=== PATIENT | female | born 1955 | race Caucasian/White ===

== ENCOUNTER → 2016-06-01 | Outpatient (CLI) | payer BC ==
[~2016-06-01] MED LIST: FLEC100T21 PO; LORA-741 PO; LPR50X PO; METH-589 PO
--- NOTE | 2016-06-04 13:46 | MAMMOGRAPHY REPORT ---
BILATERAL DIGITAL SCREENING MAMMOGRAM TOMOSYNTHESIS WITH CAD: 06/01/2016 CLINICAL HISTORY: Routine screening. Patient has no complaints. TECHNIQUE: Breast tomosynthesis in addition to standard 2D mammography was performed. Current study was also evaluated with a Computer Aided Detection (CAD) system. COMPARISON: Comparison is made to exams dated: 05/30/2015 mammogram, 05/27/2014 mammogram, 05/20/2013 mammogram, 12/14/2014 mammogram, 05/07/2012 mammogram, and 05/07/2011 mammogram - [facility] enter. BREAST COMPOSITION: The tissue of both breasts is heterogeneously dense, which may obscure small ma sses. FINDINGS: No suspicious masses, calcifications, or areas of architectural distortion are noted in e ither breast. There has been no significant interval change compared to prior exams. There are fluc tuating small round/oval circumscribed benign-appearing masses within the left breast, which likely represent cysts, with multiple cysts seen on prior ultrasound exams. Bilateral benign-appearing jaylin cifications are also not significantly changed. IMPRESSION: ACR BI-RADS CATEGORY 2: BENIGN There is no mammographic evidence of malignancy. A 1 year screening mammogram is recommended. The p atient will receive written notification of the results. Approximately 10% of breast cancers are not detected with mammography. A negative mammographic repor t should not delay biopsy if a clinically suggestive mass is present. Xiomara Gee M.D. /:06/01/2016 16:38:17 Appointment Clerk: Greta HILTON(Carla)(Simran), [facility] letter sent: Normal 1/2 BI-RADS Code: ACR BI-RADS Category 2: Benign
== END | disposition home or self-care (01) ==
LOC: C.MAMM 15:58
PROVIDERS: ATTEND Internal Medicine
DX: Z12.31 Encounter for screening mammogram for malignant neoplasm of breast (principal)

== ENCOUNTER → 2017-11-08 | Outpatient (CLI) | payer BC ==
--- NOTE | 2017-11-08 15:27 | MAMMOGRAPHY REPORT ---
BILATERAL DIGITAL SCREENING MAMMOGRAM TOMOSYNTHESIS WITH CAD: 11/08/2017 CLINICAL HISTORY: Routine screening. Patient has no complaints. TECHNIQUE: The study was acquired using full field digital technology and interpreted from soft copy. Breast tomosynthesis in addition to standard 2D mammography was performed. Current study was also ev aluated with a Computer Aided Detection (CAD) system. COMPARISON: Comparison is made to exams dated: 06/01/2016 mammogram, 05/30/2015 mammogram, 12/14/2014 ma mmogram, 06/03/2014 mammogram, 05/27/2014 mammogram, and 05/20/2013 mammogram - [facility]. BREAST COMPOSITION: The tissue of both breasts is heterogeneously dense, which may obscure small mass es. FINDINGS: No suspicious masses, calcifications, or areas of architectural distortion are noted in either breast . There has been no significant interval change compared to prior exams. Again noted are fluctuating small round/oval circumscribed benign-appearing masses bilaterally, likely representing cysts. Bila teral benign-appearing calcifications are also not significantly changed. IMPRESSION: ACR BI-RADS CATEGORY 2: BENIGN There is no mammographic evidence of malignancy. A 1 year screening mammogram is recommended.( 019) The patient will receive written notification of the results. Some breast cancers are not detected with mammography. A negative mammographic report should not jamel y biopsy if a clinically suggestive mass is present. Xiomara Gee M.D. /:11/08/2017 14:44:54 Rn Clinical Research: RT Austin(R)(M), [facility] letter sent: Normal 1/2 BI-RADS Code: ACR BI-RADS Category 2: Benign
== END | disposition home or self-care (01) ==
LOC: C.MAMM 13:44
PROVIDERS: ATTEND Internal Medicine
DX: Z12.31 Encounter for screening mammogram for malignant neoplasm of breast (principal)

== ENCOUNTER 2022-04-30 09:04 | Observation (INO) ==
--- NOTE | 2022-03-20 11:14 | PAT Medication Instructions ---
Medication Instructions Date of Service March 20, 2022 Home Medications Medication Instructions Recorded methimazole 5 mg tablet 5 mg PO BID #180 tabs 06/12/21 metoprolol tartrate 25 mg tablet 25 mg PO BID #180 tabs 11/10/21 flecainide 150 mg tablet 150 mg PO BID #180 tabs 12/22/21 methimazole 5 mg tablet 5 mg PO BID metoprolol tartrate 25 mg tablet 25 mg PO BID flecainide 150 mg tablet 150 mg PO BID amlodipine 5 mg tablet (Norvasc) 5 mg PO QAM naproxen sodium 220 mg tablet 220 mg PO QAM PRN rosuvastatin 5 mg tablet 5 mg PO QAM ASK your surgeon for instructions naproxen sodium 220 mg tablet 220 mg PO QAM PRN Take morning of surgery With a small sip of water, OTHERWISE NOTHING TO EAT OR DRINK AFTER MIDNIGHT: methimazole 5 mg tablet 5 mg PO BID metoprolol tartrate 25 mg tablet 25 mg PO BID flecainide 150 mg tablet 150 mg PO BID amlodipine 5 mg tablet (Norvasc) 5 mg PO QAM rosuvastatin 5 mg tablet 5 mg PO QAM Take evening before surgery methimazole 5 mg tablet 5 mg PO BID metoprolol tartrate 25 mg tablet 25 mg PO BID flecainide 150 mg tablet 150 mg PO BID Other Notes If you have any questions please call us at [phone] or [phone] or [phone] or [phone]
--- NOTE | 2022-03-21 14:17 | Anesthesiology Consultation ---
Date of Service March 21, 2022 Assessment & Plan (1) Encounter for pre-operative examination: - COVID screening: Per assessment on 03/21: No known COVID-19 positive contacts or current COVID-19 related symptoms. Travel screen negative. Patient vaccinated. At surgeon discretion if preop Covid testing being done. - Outpatient joint pathway: Per OR booking comments, plan for outpatient joint program. Patient seen at [facility] 03/21. Case reviewed with Dr. Pretty. Given remote cardiac hx (WPW, paroxysmal a. fib), feels patient is not recommended for outpatient joint pathway. Patient and Gilda at surgeon's office aware. - Hx WPW, paroxysmal a. fib: Case reviewed with Dr. Pretty- recommend preop cardiology evaluation (pt aware/requests [facility]). Awaiting cardiology preop evaluation. Chart Review Chart Review: Patient seen in Pre Admission Testing Teaching & Discussion Pre-Anesthesia Teaching/Discussion Notes: Instructed NPO after midnight before surgery,except medications with 15 cc of water. Medication instructions provided according to the [facility] guidelines. History Surgery Operation Date: 04/30/22 09:20 Proposed Procedures p Right Total Knee Arthroplasty - Kenneth Domingo, DO Height/Weight Height: 5 ft 4 in Weight: 99 kg Allergies Allergy/AdvReac Type Severity Reaction Status Date / Time lidocaine AdvReac Intermediate Sensitivity, Verified 03/21/22 14:22 nausea, heart flutter (with dental procedure) Medications Home Medications Medication Instructions Recorded Confirmed Last Taken methimazole 5 mg tablet 5 mg PO BID #180 tabs 06/12/21 03/20/22 Unknown metoprolol tartrate 25 mg tablet 25 mg PO BID #180 tabs 11/10/21 03/20/22 Unknown flecainide 150 mg tablet 150 mg PO BID #180 tabs 12/22/21 03/20/22 Unknown amlodipine 5 mg tablet (Norvasc) 5 mg PO QAM 03/20/22 03/20/22 Unknown naproxen sodium 220 mg tablet 220 mg PO QAM PRN Pain 03/20/22 03/20/22 Unknown rosuvastatin 5 mg tablet 5 mg PO QAM 03/20/22 03/20/22 Unknown Past Medical History Medical History Hyperlipidemia Hypertension Hyperthyroidism controlled with medication Methimazole Euthyroid on 03/2022 labs Osteoarthritis Paroxysmal atrial fibrillation Thyroid goiter Amkao-Cosxityyo-Kqcus syndrome unsuccessful ablation 1997 ([facility] [place]) PCP manages- per 05/2021 PCP visit, "pAfib/WPW - Onset around 1997. She reports she failed ablation. She's been on Flecainide 150mg PO BID and Metoprolol 25mg BID for several years since without palpitations or recurrence of arrhythmia. Continue current medications." Exercise / Class Metabolic Activity II 4-5 Yardwork/Stairs/Walk up hill Past Family History Family History Mother Colorectal cancer Other No family history of adverse response to anesthesia Denies family history of Ovarian cancer Prostate cancer Breast cancer Lung cancer Past Surgical History Surgical History H/O section History of cardiac radiofrequency ablation History of colonoscopy Past Anesthesia History No Family Hx of Anesthesia Complications and Other (Sensitivity, nausea, heart flutter (with dental procedure)) History of PONV No Hx of PONV and No Hx of Motion Sickness Social History Smoking Status: Never smoker Do You Dip or Chew Tobacco: No Hx Alcohol Use: Yes Alcohol type: wine alcohol intake frequency: holidays/special occasions only Hx Substance Use: No substance use type: does not use Review of Systems Patient denies chest pain, shortness of breath, dyspnea on exertion, fever, chills, cough, wheezing, palpitations. Physical Exam Vital Signs VITALS BP 134/87 P 72 TEMP 97.9 SP02 95%RA RESP 16 PHYSICAL Full cervical extension range of motion. Full TMJ range of motion. TMD 3 finger breaths Mallampati Score 2 Dentition: intact, + several dental repairs (crowns) Lungs: clear throughout to auscultation Cardiac: regular rate and rhythm, no murmurs noted Spine: normal Carotid arteries: negative bruit Extremities: no edema Lab Results Anesthesia Preop Results Results Anesthesia Widget: WBC 7.31 K/ul (4.8-10.8) 03/21/22 Hgb 14.2 g/dl (12.0-16.0) 03/21/22 Hct 42.9 % (34.1-44.9) 03/21/22 Plt 208 K/uL (130-400) 03/21/22 Na 141 mmol/L (136-145) 03/21/22 K 3.8 mmol/L (3.5-5.1) 03/21/22 Cl 107 mmol/L (98-107) 03/21/22 CO2 29 mmol/L (21-32) 03/21/22 BUN 18 mg/dl (6-23) 03/21/22 Creat 0.66 mg/dl (0.6-1.2) 03/21/22 Glucose Level 108 mg/dl (70-99(Fasting)) H 03/21/22 PT 10.8 Seconds (9.0-12.0) 03/21/22 PTT 27.9 Seconds (21.0-31.0) 03/21/22 INR 1.0 (0.9-1.1) 03/21/22 TSH 1.298 uIu/ml (0.300-4.500) 03/21/22 Free T4 0.92 ng/dl (0.61-1.60) 03/21/22 Blood Type O Positive 03/21/22 Antibody Screen NEGATIVE 03/21/22 Testing Electrocardiogram Date: 03/21/22 NSR at 68bpm. Compared to 12/14/1996, WPW pattern no longer present per valve inserter comparison. Chest X-Ray Date: 03/21/22 FINDINGS: No lines and tubes are seen. The aorta is tortuous. The remainder of the cardiomediastinal silhouette is unremarkable. The lungs are clear. No evidence of pleural effusion or pneumothorax. IMPRESSION: No acute chest disease. COVID-19 Risk Screen Screening Information COVID-19 Screen Date: 03/21/22 Exposure 21 Days Family/Household +COVID Last 21 Days: No Exposure 10 Days Any COVID Exposure Last 10 Days: No Symptoms Last 10 Days Experienced COVID Sx Last 10 Days: No + COVID 0-90 Days COVID + in Last 0-90 Days: No
--- NOTE | 2022-04-26 16:31 | History & Physical Report ---
Date of Service April 26, 2022 Assessment & Plan (1) Osteoarthritis of knee: We will proceed with a right total knee arthroplasty. Postoperatively she will be started on aspirin for DVT prophylaxis and kept overnight in the hospital for postop medical management. She plans to use energy physical therapy upon discharge. History of Present Illness Chief Complaint: Osteoarthritis of the right knee. Primary Care Provider: Abad Shahid MD Cindi is a 66-year-old female who has been dealing with chronic worsening right knee pain. She has been having injections for years. She has done exercise and physical therapy without relief. She has been taking anti-inflammatories and has done activity modification. Unfortunately, she is still having a lot of rupert n in the knee. X-rays have shown advanced arthritis. After failing conservativetreatment, she has elected to proceed with a right total knee arthroplasty. . Allergies Allergy/AdvReac Type Severity Reaction Status Date / Time lidocaine AdvReac Intermediate Sensitivity, Verified 04/04/22 11:43 nausea, heart flutter (with dental procedure) Home Medications Medication Instructions Recorded Confirmed Type methimazole 5 mg tablet 5 mg PO BID #180 tabs 06/12/21 04/04/22 Rx metoprolol tartrate 25 mg tablet 25 mg PO BID #180 tabs 11/10/21 04/04/22 Rx flecainide 150 mg tablet 150 mg PO BID #180 tabs 12/22/21 04/04/22 Rx naproxen sodium 220 mg tablet 220 mg PO QAM PRN Pain 03/20/22 04/04/22 History rosuvastatin 5 mg tablet 5 mg PO QAM 03/20/22 04/04/22 History amlodipine 5 mg tablet (Norvasc) 10 mg PO QAM 04/04/22 04/04/22 History Past Med/Surg History Medical History Hyperlipidemia Hypertension Hyperthyroidism controlled with medication Methimazole Euthyroid on 03/2022 labs Osteoarthritis Paroxysmal atrial fibrillation Thyroid goiter Zabut-Wikanjynp-Lvfjh syndrome [place] 1997 [place] [place] PCP manages- per 05/2021 PCP visit, "pAfib/WPW - Onset around 1997. She reports she failed ablation. She's been on Flecainide 150mg PO BID and Metoprolol 25mg BID for several years since without palpitations or recurrence of arrhythmia. 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 Physical Exam On physical examination of the right knee, she is range of motion from 5 to 115 degrees. No instability. Pain of the distal femoral condyle.. Constitutional WD/WN, vitals as above Eyes PERRL, conjunctivae normal, anicteric sclerae ENMT external ear and nose normal, oropharynx normal Neck trachea midline, no thyromegaly Respiratory normal respiratory effort, lungs clear to auscultation Cardiovascular RRR, no murmur, no edema Gastrointestinal (Abdomen) normal bowel sounds, soft, nontender, no hepatosplenomegaly Skin no rashes, warm and dry Psychiatric A+Ox3, euthymic affect Results & Data Results & Data Laboratory Results . Diagnostic Findings X-rays of the right knee show advanced osteoarthritis with joint space narrowing, osteophyte formation, and gmrh-jk-wown articulation.. PG Care Time/CCT Total # of Minutes Spent Total Time Spent with Patient: Total time spent is greater than 50% in coordination of care (as documented) at patient's floor/unit and/or counseling patient: Coding Level of Care Code None Diagnoses Osteoarthritis of knee M17.10
[~2022-04-30 09:04] MED LIST changes: +ACETAMINOPHEN 500 MG TAB PO SCH; +BUPIVACAINE 0.5 % 5 MG/1 ML PF 10ML VIAL ONE; +FAMOTIDINE 20 MG TAB PO SCH; -FLEC100T21 PO; +GABAPENTIN 600 MG DOSE PO SCH; -LORA-741 PO; -LPR50X PO; +LR 500ML BOLUS, THEN 15ML/HR IV SCH; +LR 60ML/HR IV SCH; -METH-589 PO; +ORTHO JOINT MIX INFIL SCH; +ROPIVACAINE 0.5% 5 MG/ML 30 ML VIAL ONE; +TRANEXAMIC ACID 1,000 MG **IV Intra-op IV SCH; +TRANEXAMIC ACID 1,000 MG **IV Pre-op IV SCH; +ceFAZolin 2000MG 2,000 MG/15 ML SYR IV SCH; +dexAMETHasone 4 MG TAB PO SCH
[2022-04-30] MEDS ORDERED: MIDAZOLAM HCL 1 MG/ML 2ML VIAL ONE (09:23)
[2022-04-30] MEDS ORDERED: ONDANSETRON INJ 2 MG/ML 2 ML VIAL ONE (09:44)
[2022-04-30] MEDS ORDERED: PROPOFOL IV EMULSION 10 MG/ML 20 ML VIAL IV ONE ×2 (09:44→12:12)
[2022-04-30] MEDS ORDERED: LIDOCAINE 2% MPF LOCAL 5 ML VIAL INFIL ONE (09:44)
[2022-04-30] MEDS ORDERED: ATROPINE SULFATE 0.1 MG/ML 10ML SYR IV PRN (10:16)
[2022-04-30] MEDS ORDERED: ONDANSETRON INJ 2 MG/ML 2 ML VIAL IV PRN ×2 (10:16→13:54)
[2022-04-30] MEDS ORDERED: fentaNYL citrate 100 MCG/2 ML VIAL IV PRN (10:16)
[2022-04-30] MEDS ORDERED: ePHEDrine sulfate 50 MG/ML AMP IV PRN (10:16)
--- NOTE | 2022-04-30 10:23 | History & Physical Bridge Note ---
Date of Service April 30, 2022 History & Physical Bridge Note I have examined the patient, reviewed the History & Physical and in the interval since the performance of the History & Physical I have noted the following changes of clinical significance: no changes noted
[2022-04-30] MEDS ORDERED: ORTHO JOINT ANESTHETIC ONE (10:49)
[2022-04-30] MEDS ORDERED: GLYCOPYRROLATE 0.2 MG/ML VIAL ONE (11:44)
[2022-04-30] MEDS ORDERED: ePHEDrine sulfate 50 MG/ML SYR ONE (11:57)
--- NOTE | 2022-04-30 12:17 | Operative Report ---
PG Post Operative Report Pre & Post Diagnosis Operation Date: 04/30/22 10:55 Pre-Op Diagnosis: Degenerative Joint Disease Right Knee Post-Op Diagnosis: Degenerative Joint Disease Right Knee I identified the patient and participated in the time-out.: Yes Procedure Operation Date: 04/30/22 10:55 Actual Procedures p Right Total Knee Arthroplasty(Right) - Kenneth Dominog DO Surgeon Kenneth Domingo DO Machine Cloth Measurer Kenneth Cuadra PA-C Estimated Blood Loss 50 Findings Consistent with Post-Op Diagnosis Specimens Right femoral and tibial bone Description of Procedure Implants used: I used a Malia Persona total knee arthroplasty system with a size 9 narrow PS femur, E tibia with a 30 mm stem extension, 31 oval patella, and a size 16 CPS polyethylene bearing. All components were cemented in place with Biomet cement. Cindi arrived [facility] for the above procedure. She was seen in the preoperative holding area and the operative extremity was identified and signed. She was given a preoperative antibiotic, TXA, a spinal anesthetic and an adductor nerve block. She was taken back to the operating room and laid on the table in supine position. She was given basic sedation. The operative knee was then prepped and draped in sterile fashion. A timeout was done, and the patient and the operative extremity was properly identified. A midline incision was made directly over the patella. Dissection was taken down to the extensor mechanism. A midvastus arthrotomy was used. The medial retinaculum was released and the fat pad was mostly excised. The knee was flexed and the ACL, PCL, and meniscus were removed. A drill was sent down the center of the femoral canal followed by an intramedullary jaswinder. Off that jaswinder a distal femoral cutting block was placed. 9 mm was resected off the distal femur at 5 of valgus. A posterior referencing AP sizing guide was then placed on the distal femur. The femur measured to be a size 9. 2 drill holes were placed in 3 of external rotation. A 4-in-1 cutting block was then impacted into place. Anterior, posterior, and chamfer cuts were then made. The proximal tibia was then exposed. An external tibial alignment guide was placed. A tibial cut guide was then anchored in place and the proximal tibia was then resected. The posterior aspect of the knee was then opened up and any additional meniscus fragments and osteophytes were removed. The tibia measured to be a size E. The tibial plate was then placed in the appropriate rotation and the tibia was drilled and punched. Trial components were then placed. I used a size 16 CPS polyethylene insert. The knee was brought through a full range of motion and felt to be stable. The peg holes for the femoral component were then drilled. The patella was then everted and 9 mm was resected off the posterior aspect of the patella. The patella measured to be a size 31 oval. 3 peg holes were then drilled. A trial patella was placed. The knee was once again brought through a full range of motion and felt to be stable. Trial components were then removed. The surrounding soft tissues were injected with 100 cc of an orthopedic pain control cocktail. All components were then cemented into place with Biomet cement. The final polyethylene insert was then snapped into place. Once cement was dry the tourniquet was deflated. Hemostasis was obtained. A dilute betadyne lavage was then done for 3 minutes. The joint was then irrigated with normal saline solution. The midvastus art hrotomy was then closed with #1 Vicryl suture. The skin was closed with 2-0 Vicryl, 3-0V lock suture, and ellen. A soft compressive dressing was placed. She was then transferred to a hospital bed and taken to the postanesthesia care unit in stable condition. She tolerated the procedure well. Kenneth Cuadra PA-C, was present for the entire procedure. He was critical for patient positioning, prepping, draping, retraction exposure, wound closure and application of sterile dressing. I attest to the content of the Intraoperative Record and any orders documented therein. Any exceptions are noted below.
--- NOTE | 2022-04-30 13:18 | XRay Report ---
XR knee RT 1 or 2V routine HISTORY: 66 years-old Female Surgical Post Op right knee arthroplasty COMPARISON: Knee radiographs 01/22/2022 TECHNIQUE: 2 views of the right knee FINDINGS: Total joint arthroplasty with patellar resurfacing. Anterior midline skin ellen are noted along wit h expected postoperative soft tissue swelling with deep tissue air. No acute fracture, dislocation or unexpected opaque foreign body. IMPRESSION: Total joint arthroplasty with expected postoperative changes. ACT 112: Negative or not required by law. The above report was generated using voice recognition software. It may contain grammatical, syntax o r spelling errors. Electronically signed by: Minh Grimm M.D. 04/30/2022 1:17 PM
--- NOTE | 2022-04-30 13:48 | Anesthesiology Progress Note ---
Date of Service April 30, 2022 Anesthesia Post Procedure Vital Signs Vital Signs: Temp Pulse Resp BP BP Pulse Ox O2 Del Method 04/30/22 13:25 62 17 100/62 94 Nasal Cannula 04/30/22 13:15 64 16 98/60 L 93 Nasal Cannula 04/30/22 13:05 99.3 F 65 17 102/60 93 Nasal Cannula 04/30/22 12:55 66 21 96/61 L 92 Oxymask 04/30/22 12:45 68 16 90/61 L 97 Oxymask 04/30/22 12:38 97.7 F 70 16 98/65 L 96 Oxymask 04/30/22 09:22 98.2 F 67 20 145/88 H 142/90 H 95 Room Air O2 Flow Rate 04/30/22 13:25 4 04/30/22 13:15 4 04/30/22 13:05 4 04/30/22 12:55 5 04/30/22 12:45 5 04/30/22 12:38 5 04/30/22 09:22 Transfer of Care Handoff Completed per policy Notes Mental Status: alert / awake / arousable and participated in evaluation Patient Amnestic to Procedure: Yes Nausea / Vomiting: adequately controlled Pain: adequately controlled Airway Patency, RR, SpO2: stable & adequate BP & HR: stable & adequate Hydration State: stable & adequate Neuraxial Anesthesia: was administered and sensory block is resolving Anesthetic Complications: no major complications apparent and Pt Satisfied with anesthetic care
[2022-04-30] MEDS ORDERED: oxyCODONE HCL IR 5 MG TAB (IMMEDIATE RELEASE) PO PRN (13:54)
[2022-04-30] MEDS ORDERED: HYDROmorphone INJ 0.5 MG/0.5 ML SYR IV PRN (13:54)
[2022-04-30] MEDS ORDERED: METOCLOPRAMIDE HCL INJ 5 MG/ML 2 ML VIAL IV PRN (13:54)
[2022-04-30] MEDS ORDERED: bisacodyL 10 MG SUPP PR PRN (13:54)
[2022-04-30] MEDS ORDERED: NALOXONE HCL 0.4 MG/1 ML VIAL/CARP IV PRN (13:54)
[2022-04-30] MEDS ORDERED: MAGNESIUM HYDROXIDE SUSP 30 ML UDC PO PRN (13:54)
[2022-04-30] MEDS ORDERED: SODIUM CHLORIDE 0.9% 1000ML 1,000 ML IV SCH (14:00)
[2022-04-30] MEDS: ACETAMINOPHEN 500 MG TAB PO SCH ×2 (14:47→20:29)
[2022-04-30] MEDS: ceFAZolin 2000MG 2,000 MG/15 ML SYR IV SCH (19:03)
[2022-04-30] MEDS: ASPIRIN 81 MG ECTAB PO SCH (20:27)
[2022-04-30] MEDS: methIMAzole 5 MG TABLET PO SCH (20:28)
[2022-04-30] MEDS: DOCUSATE SODIUM 100 MG CAP PO SCH (20:28)
[2022-04-30] MEDS: METOPROLOL TARTRATE 25 MG TAB PO SCH (20:29)
[2022-04-30] MEDS: FLECAINIDE ACETATE 100 MG TABLET PO SCH (20:30)
[2022-04-30] MEDS ORDERED: SENNA 8.6 MG TAB PO SCH (21:00)
[2022-05-01] MEDS: ceFAZolin 2000MG 2,000 MG/15 ML SYR IV SCH (03:54)
[2022-05-01] MEDS: ACETAMINOPHEN 500 MG TAB PO SCH (05:36)
--- NOTE | 2022-05-01 06:50 | Orthopedic Progress Note ---
Date of Service May 01, 2022 Assessment & Plan (1) Status post right knee replacement: Overall she is doing very well. She is having much pain in the right knee. She will be seen by physical therapy today for ambulation and range of motion exercises. She is on aspirin for DVT prophylaxis. The nursing staff can change the dressing after physical therapy today. She can be discharged home later today. She will follow-up with orthopedics in 2 weeks. Amy Puente was seen and examined at bedside this morning. Overall she doing well. She is having much pain in the right knee. She has been up and ambulating to the bathroom. She has no complaints.. Review of Systems All systems reviewed & are unremarkable except as noted in HPI & below. Physical Exam On physical examination of the right knee, her dressing is clean and dry. Her leg is out full extension. She has active dorsiflexion plantarflexion of her right ankle.. Results & Data Results & Data Laboratory Results . Diagnostic Findings Postoperative x-rays of the right knee show the prosthesis to be in anatomic alignment without any evidence of fracture, desiccation, or loosening. PG Care Time/CCT Total # of Minutes Spent Total Time Spent with Patient: Total time spent is greater than 50% in coordination of care (as documented) at patient's floor/unit and/or counseling patient: Coding Level of Care Code 05108 Post Operative Follow-Up Diagnoses Status post right knee replacement Z96.651
--- NOTE | 2022-05-01 06:51 | Discharge Summary ---
Date of Service May 01, 2022 Admission HPI (Per Admitting) Cindi is a 66-year-old female who has been dealing with chronic worsening right knee pain. She has been having injections for years. She has done exercise and physical therapy without relief. She has been taking anti-inflammatories and has done activity modification. Unfortunately, she is still having a lot of pain in the knee. X-rays have shown advanced arthritis. After failing conservativetreatment, she has elected to proceed with a right total knee arthroplasty. . Admission Exam (Per Admitting) On physical examination of the right knee, she is range of motion from 5 to 115 degrees. No instability. Pain of the distal femoral condyle.. Principal Diagnosis Same as "Discharge Diagnosis" noted below under Discharge Instructions. Discharge Exam On physical examination of the right knee, her dressing is clean and dry. Her leg is out full extension. She has active dorsiflexion plantarflexion of her right ankle.. Discharge Data Procedures Performed Operation Date: 04/30/22 10:55 Actual Procedures p Right Total Knee Arthroplasty(Right) - Kenneth Domingo DO Ordered Studies 04/30/22 05:00 US - OR guided needle placemen Routine Hospital Course (1) Status post right knee replacement: On April 30, 2022 Cindi arrived at [facility] and underwent a right knee replaced without complication. She had a spinal anesthetic. Postoperatively she was started on aspirin for DVT prophylaxis and transferred to the general orthopedic floors. Her hospital course was uneventful. On postop day #1, her vital signs were stable and her pain was well controlled. She was able to speak well with physical therapy doing ambulation and range of motion exercises. She was then discharged home. She will follow with orthopedics in 2 weeks. PG Care Time/CCT Total # of Minutes Spent Total Time Spent with Patient: Total time spent is greater than 50% in coordination of care (as documented) at patient's floor/unit and/or counseling patient: Discharge Plan Discharge Items Patient Disposition: Home - Home Health Services Reason For Visit: POST OP Discharge Diagnosis: Right knee replacement Activity: Per Instructions section Non-emergency contact: Surgeon Call non-emergency contact if: your wound has increased redness and your wound has increased drainage Follow-up/Referrals: Abda Shahid MD [Primary Care Provider] - Diet: Regular Addtl Attending Provider Instructions: Activity and Therapy Recommendations: * If you are using [facility] then therapy will be provided at your home until they feel you have accomplished all of your goals. * If you are using [facility] then Physical Therapy will be provided until they feel you are ready to start Outpatient Physical Therapy. * If you are not using home therapy then Outpatient Physical Therapy should start about 3-5 days from your day of surgery. Therapy will last about 6-10 weeks * It is important not to put a pillow under your knee when you are relaxing or sleeping. It is just as important to make sure you are getting your knee perfectly straight as it is to regain your knee bend. * You were shown a series of exercises in the hospital. Do these exercises three times each day including the exercises you were shown in physical therapy. * Get up and walk several times each day. For the first four weeks, try not to stand or walk for more than one hour at a time. If you do stand or walk for more than one hour, you will not hurt anything, but your leg will likely swell. * As you feel comfortable, you may change from the walker or crutches to a cane and then to independent walking. Medications: * Narcotic You will likely be sent home from the hospital with a prescription for the narcotic pain medication that worked best throughout your stay. * Aspirin Most patients will be required to take Aspirin 81mg twice a day for 6 weeks after surgery. This is obtained gicn-vab-wmdlafs and a prescription is not necessary. * Other medications may be prescribed for specific circumstances. If you have any questions, please call the office at . * Resume previous home medications unless otherwise instructed TEDs/Elastic Stockings: The white elastic stockings help limit swelling and prevent blood clots from forming in your legs.~ The more you wear them, the more they work. Wear them for six weeks. Dressing Care: The dressing can be changed after physical therapy on postop day #1. Daily dry dressing changes for a few days, especially if the incision is still draining some. If the incision is not draining then you may leave the ellen open to air. If there is a little bit of drainage or if the ellen are getting stuck on your clothing then cover the incision with a dry dressing. The ellen will be removed at your 2 week follow-up appointment. Showering: You may shower 5 days from the day of surgery as long as the incision is no longer draining. You may shower with the ellen exposed. Let soapy water run over the ellen and pat them dry. Do not scrub or soak the incision. Things To Watch For: * Drainage from the incision site that occurs more than one week after your surgery. * Increased redness at the incision site. * Fever above 102 degrees Fahrenheit. * Unusual chest pain or shortness of breath. * Call [facility] at with any of the above problems Follow-Up Visit: Follow-up with Dr. Domingo's PA (Kenneth Cuadra) 2-3 weeks after your day of surgery. He will remove your ellen and answer any questions. If you have any additional questions or concerns, Dr Domingo is usually in the office at the same time and will be available An appointment was probably scheduled when you signed-up for surgery in the office. If you have any questions call Office Instructions: More detailed instructions as well as Frequently Asked Questions were provided in a folder by our office when you signed-up for surgery. Please review these instructions when you get home. If you have any further questions or concerns, please feel free to call the office at [phone] Pending Studies at Discharge: No Stand-Alone Forms: My [facility] Medications and DC Order Prescriptions: New aspirin 81 mg Tablet,Delayed Release (Dr/Ec) 81 mg PO BID 42 Days Qty: 84 0RF oxycodone-acetaminophen 5-325 mg tablet 1 tab PO Q6H PRN (Reason: pain) Qty: 30 0RF celecoxib [Celebrex] 200 mg capsule 200 mg PO BID Qty: 28 0RF Rx Instructions: Take 1 pill twice a day for 2 weeks after surgery Continued metoprolol tartrate 25 mg tablet 25 mg PO BID Qty: 180 3RF flecainide 150 mg tablet 150 mg PO BID Qty: 180 1RF methimazole 5 mg tablet 5 mg PO BID Qty: 180 3RF amlodipine [Norvasc] 5 mg tablet 10 mg PO QAM rosuvastatin 5 mg tablet 5 mg PO QAM Discontinued naproxen sodium 220 mg Tablet 220 mg PO QAM PRN (Reason: Pain) Admission Data Admit Date/Time: 04/30/22 12:39 Attending Provider: Kenneth Domingo Admit Provider: Kenneth Domingo Primary Care Provider: Abad Shahid
[2022-05-01] MEDS ORDERED: dexAMETHasone 4 MG TAB PO SCH (08:00)
[2022-05-01] MEDS: methIMAzole 5 MG TABLET PO SCH (08:14)
[2022-05-01] MEDS: FLECAINIDE ACETATE 100 MG TABLET PO SCH (08:15)
[2022-05-01] MEDS: METOPROLOL TARTRATE 25 MG TAB PO SCH (08:15)
[2022-05-01] MEDS: ASPIRIN 81 MG ECTAB PO SCH (08:15)
[2022-05-01] MEDS: DOCUSATE SODIUM 100 MG CAP PO SCH (08:18)
[2022-05-01] MEDS ORDERED: amLODIPine BESYLATE 5 MG TAB PO SCH (09:00)
[2022-05-01] MEDS ORDERED: MULTIVITAMIN TAB PO SCH (09:00)
[2022-05-01] MEDS ORDERED: ROSUVASTATIN CALCIUM 5 MG TAB PO SCH (09:00)
== END 2022-05-01 10:55 | disposition home health service (06) ==
LOC: ASU 09:04 → 3E 09:04

== ENCOUNTER 2022-09-10 08:35 | Observation (INO) ==
--- NOTE | 2022-08-06 15:03 | PAT Medication Instructions ---
Medication Instructions Date of Service August 06, 2022 Home Medications Medication Instructions Recorded amlodipine 5 mg tablet (Norvasc) 10 mg PO QAM 90 days #180 tabs 07/03/22 flecainide 150 mg tablet 150 mg PO BID #180 tabs 08/01/22 methimazole 5 mg tablet 5 mg PO BID #180 tabs 08/01/22 metoprolol tartrate 25 mg tablet 25 mg PO BID #180 tabs 08/01/22 rosuvastatin 5 mg tablet 5 mg PO QAM #90 tabs 08/01/22 amlodipine 5 mg tablet (Norvasc) 10 mg PO QAM flecainide 150 mg tablet 150 mg PO BID methimazole 5 mg tablet 5 mg PO BID metoprolol tartrate 25 mg tablet 25 mg PO BID rosuvastatin 5 mg tablet 5 mg PO QAM Take morning of surgery With a small sip of water, OTHERWISE NOTHING TO EAT OR DRINK AFTER MIDNIGHT: amlodipine 5 mg tablet (Norvasc) 10 mg PO QAM flecainide 150 mg tablet 150 mg PO BID methimazole 5 mg tablet 5 mg PO BID metoprolol tartrate 25 mg tablet 25 mg PO BID rosuvastatin 5 mg tablet 5 mg PO QAM Take evening before surgery flecainide 150 mg tablet 150 mg PO BID methimazole 5 mg tablet 5 mg PO BID metoprolol tartrate 25 mg tablet 25 mg PO BID Other Notes If you have any questions please call us at [phone] or [phone] or [phone] or [phone]
--- NOTE | 2022-08-14 15:56 | Anesthesiology Consultation ---
Date of Service August 14, 2022 Assessment & Plan (1) Encounter for pre-operative examination: - COVID screening: Per assessment on 08/14: No known COVID-19 positive contacts or current COVID-19 related symptoms. Travel screen negative. Patient vaccinated. At surgeon discretion if preop Covid testing being done. - Outpatient joint assessment: Pt currently scheduled for inpatient pathway. If surgeon requests review for outpatient joint pathway, patient is not recommended candidate for outpatient joint program from anesthesia standpoint. -Cardiology office visit (04/03/22): "presents for preoperative cardiovascular evaluation prior to right total knee arthroplasty on 04/30/[address] Domingo. She has chronically been on flecainide given her history of WPW / paroxysmal atrial fibrillation, since failed catheter ablation in 1997.Recent ECG showed WPW pattern was no longer present. Regardless, given her age, there is no longer the concern regarding dangerous arrhythmia associated with the ventricular preexcitation. She can therefore discontinue the antiarrhythmic therapy. Given her upcoming surgery, though, will have her wait to discontinue the flecainide until after the surgery.Will schedule follow-up with one of the Electrophysiologists in a couple of months, and she will discontinue flecainide a week prior to the visit. She will then have repeat ECG at the visit to reevaluate off antiarrhythmic therapy. Further discussion can take place at that time regarding long-term recommendations, including anticoagulation therapy given her history of a fib.In regards to surgery, she is asymptomatic with no anginal symptoms at >4 METS of activity. She has no evidence of CHF or significant valvular abnormality. She is therefore at an acceptable risk to proceed with upcoming surgery without any additional cardiovascular testing. Herblood pressure is elevated in the clinic today, and will therefore have her increase her amlodipine to 10 mg daily." - S/P Right TKA (04/30/22): SAB at L3-L4 (x1 attempt) + PNB. No issues noted per post-op anesthesia progress note. 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 I am going to try to obtain those records, starting here and if we cannot find any here perhaps we can get them from [facility]. It was more than 20 years ago and it may be difficult to get these records. I did discuss with her the possibility of discontinuing the medication since it has been so long and she has had no issue at all for more than 20 years, however she is tolerating them well and she would prefer not to change medications until after her upcoming knee surgery. Since she has been on them so long I do not think that is unreasonable and I have not changed her flecainide or Toprol tartrate.. She may have had atrial fibrillation around the time of her presentation with WPW syndrome, but that would be an unusual presentation although atrial fibrillation can be associated with WPW syndrome. Since her bypass tract was not ablated I would expect if she had atrial fibrillation that she would have had some recurrence over the years and she has no recollection of it (unless it was asymptomatic) and although flecainide might be helping it would be surprising if it would be that effective for that long. I would like to review the electrocardiograms from that time to see whether she did indeed have atrial fibrillation. That might change our approach..Her blood pressure is borderline although acceptable today.. Her amlodipine was recently increased and that seemed to help with her blood pressure by her recollection. If she has difficulty with leg swelling on amlodipine we could increase the metoprolol instead. For now I have not changed things..She does have edema in her legs, this was recently exacerbated by her knee surgery as well as going up on amlodipine. It is tolerable and she wears support stockings but if it gets difficult to manage we could consider discontinuing the amlodipine and increasing the Toprol tartrate or adding an JACOBO inhibitor instead. For now I have not changed things. I am going to try to obtain records and have her come back in 6 months, that will be after her other knee surgery and we may want to adjust her flecainide at that time." Chart Review Chart Review: Acceptable Risk for Surgery (pending evaluation AM DOS) and Patient seen in Pre Admission Testing History Surgery Operation Date: 09/10/22 08:10 Proposed Procedures p Left Total Knee Arthroplasty - Kenneth Domingo, DO Height/Weight Height: 5 ft 4 in Weight: 96.5 kg Allergies Allergy/AdvReac Type Severity Reaction Status Date / Time lidocaine AdvReac Intermediate Sensitivity, Verified 08/03/22 15:21 nausea, heart flutter (with dental procedure) Medications Home Medications Medication Instructions Recorded Confirmed Last Taken amlodipine 5 mg tablet (Norvasc) 10 mg PO QAM 90 days #180 tabs 07/03/22 08/03/22 Unknown flecainide 150 mg tablet 150 mg PO BID #180 tabs 08/01/22 08/03/22 Unknown methimazole 5 mg tablet 5 mg PO BID #180 tabs 08/01/22 08/03/22 Unknown metoprolol tartrate 25 mg tablet 25 mg PO BID #180 tabs 08/01/22 08/03/22 Unknown rosuvastatin 5 mg tablet 5 mg PO QAM #90 tabs 08/01/22 08/03/22 Unknown Past Medical History Medical History Hypertension Hyperthyroidism Paroxysmal atrial fibrillation Thyroid goiter Dblyy-Ykdpnvpzl-Hqjal syndrome [place] [place] Exercise / Class Metabolic Activity II 4-5 Yardwork/Stairs/Walk up hill (one FS (no CP, no SOB)) Past Family History Family History Mother Colorectal cancer Other No family history of adverse response to anesthesia Denies family history of Ovarian cancer Prostate cancer Breast cancer Lung cancer Past Surgical History Surgical History H/O section History of cardiac radiofrequency ablation History of colonoscopy History of total right knee replacement (TKR) Right TKA (04/30/22): SAB at L3-L4 (x1 attempt) + PNB. No issues noted per post-op anesthesia progress note. Past Anesthesia History No Hx of Anesthesia Complications and No Family Hx of Anesthesia Complications History of PONV No Hx of PONV and No Hx of Motion Sickness Social History Smoking Status: Former smoker tobacco type: cigarettes Do You Dip or Chew Tobacco: No Smoking End Date: Quit 1982 Hx Alcohol Use: Yes Alcohol type: wine alcohol intake frequency: holidays/special occasions only Hx Substance Use: No substance use type: does not use Review of Systems + Thyroid goiter. Per patient, goiter unchanged/stable x years s/p unremarkable ultrasound monitoring. Denies dysphagia/swallowing issues. Thyroid studies done 07/2022 WNL. Had Right TKA with SAB 04/2022 without issue. Patient denies chest pain, shortness of breath, dyspnea on exertion, fever, chills, cough, wheezing, palpitations. Physical Exam Vital Signs VITALS BP 125/72 P 60 TEMP 98.3 SP02 95%RA RESP 16 PHYSICAL Full cervical extension range of motion. Full TMJ range of motion. TMD 3 finger breaths Mallampati Score 1 Dentition: intact Lungs: clear throughout to auscultation Cardiac: regular rate and rhythm, no murmurs noted Spine: normal Carotid arteries: negative bruit Extremities: trace LE edema + Thyroid enlargement (chronic/known history of thyroid goiter) Lab Results Anesthesia Preop Results Results Anesthesia Widget: WBC 5.77 K/ul (4.8-10.8) 08/28/22 Hgb 13.8 g/dl (12.0-16.0) 08/28/22 Hct 43.0 % (37.0-47.0) 08/28/22 Plt 237 K/uL (130-400) 08/28/22 Na 143 mmol/L (136-145) 08/28/22 K 3.7 mmol/L (3.5-5.1) 08/28/22 Cl 110 mmol/L (98-107) H 08/28/22 CO2 26 mmol/L (21-32) 08/28/22 BUN 18 mg/dl (6-23) 08/28/22 Creat 0.74 mg/dl (0.6-1.2) 08/28/22 Glucose Level 99 mg/dl (70-99(Fasting)) 08/28/22 PT 10.4 Seconds (9.0-12.0) 08/14/22 PTT 27.0 Seconds (21.0-31.0) 08/14/22 INR 0.9 (0.9-1.1) 08/14/22 TSH 2.183 uIu/ml (0.300-4.500) 08/28/22 HA1c 5.7 % (4.5-5.6) H 08/28/22 Blood Type O Positive 08/14/22 Antibody Screen NEGATIVE 08/14/22 Testing Electrocardiogram Date: 05/29/22 NSR at 85bpm. Moderate voltage for LVH, may be normal variant (R in aVL, Avinash product). Chest X-Ray Date: 03/21/22 FINDINGS: No lines and tubes are seen. The aorta is tortuous. The remainder of the cardiomediastinal silhouette is unremarkable. The lungs are clear. No evidence of pleural effusion or pneumothorax. IMPRESSION: No acute chest disease. COVID-19 Risk Screen Screening Information COVID-19 Screen Date: 08/14/22 Exposure 21 Days Family/Household +COVID Last 21 Days: No Exposure 10 Days Any COVID Exposure Last 10 Days: No Symptoms Last 10 Days Experienced COVID Sx Last 10 Days: No + COVID 0-90 Days COVID + in Last 0-90 Days: No
--- NOTE | 2022-09-06 13:16 | History & Physical Report ---
Date of Service September 06, 2022 Assessment & Plan (1) Osteoarthritis of left knee: We will proceed with a left total knee arthroplasty. Postoperatively she will be started on aspirin for DVT prophylaxis and kept overnight in the hospital for postop medical management. She plans [facility] upon discharge. History of Present Illness Chief Complaint: Osteoarthritis of the left knee. Primary Care Provider: Abad Shahid MD And is a pleasant 66-year-old female who has been dealing with chronic increasing left knee pain. X-rays and clinical examination have been diagnostic for advanced osteoarthritis of the left knee. I did a right knee replacement on her in April 2022 and she is done well with that. She has elected proceed with a left total knee arthroplasty.. Allergies Allergy/AdvReac Type Severity Reaction Status Date / Time lidocaine AdvReac Intermediate Sensitivity, Verified 08/03/22 15:21 nausea, heart flutter (with dental procedure) Home Medications Medication Instructions Recorded Confirmed Type amlodipine 5 mg tablet (Norvasc) 10 mg PO QAM 90 days #180 tabs 07/03/22 08/03/22 Rx flecainide 150 mg tablet 150 mg PO BID #180 tabs 08/01/22 08/03/22 Rx methimazole 5 mg tablet 5 mg PO BID #180 tabs 08/01/22 08/03/22 Rx metoprolol tartrate 25 mg tablet 25 mg PO BID #180 tabs 08/01/22 08/03/22 Rx rosuvastatin 5 mg tablet 5 mg PO QAM #90 tabs 08/01/22 08/03/22 Rx Past Med/Surg History Medical History Hypertension Hyperthyroidism Paroxysmal atrial fibrillation Thyroid goiter Fxfld-Nqgriedyh-Iupms syndrome unsuccessful ablation 1997 ([facility] [place]) Surgical History H/O section History of cardiac radiofrequency ablation History of colonoscopy History of total right knee replacement (TKR) Right TKA (04/30/22): SAB at L3-L4 (x1 attempt) + PNB. No issues noted per post-op anesthesia progress note. Family History Mother Colorectal cancer Other No family history of adverse response to anesthesia Denies family history of Ovarian cancer Prostate cancer Breast cancer Lung cancer Social History Smoking Status: Former smoker Second Hand Exposure: No; Do You Dip or Chew Tobacco: No; Hx Alcohol Use: Yes Alcohol type: wine Alcohol Intake Frequency: Monthly or Less Hx Substance Use: No Preferred Language: Yoruba Communication Ability: Effective Visual Impairment: Limited Hearing Ability: Normal Vp [employer] Partnerships Required: No Beliefs That Will Affect Care: None marital status: Current Living Situation: Spouse current occupational status: employed Feels Safe at Home: Yes caffeine: No Dental Care, Regularly: Yes Physical Activity Frequency: Does not Exercise Seatbelt Use: always Sunscreen Use: Yes Assistive Devices: Glasses Review of Systems All systems reviewed & are unremarkable except as noted in HPI & below. Physical Exam On physical examination of the left knee, she has slight varus deformity. She has tenderness palpation of the distal medial and lateral femoral condyles. She has pain over the joint line.. Constitutional WD/WN, vitals as above Eyes PERRL, conjunctivae normal, anicteric sclerae ENMT external ear and nose normal, oropharynx normal Neck trachea midline, no thyromegaly Respiratory normal respiratory effort, lungs clear to auscultation Cardiovascular RRR, no murmur, no edema Gastrointestinal (Abdomen) normal bowel sounds, soft, nontender, no hepatosplenomegaly Skin no rashes, warm and dry Psychiatric A+Ox3, euthymic affect Results & Data Results & Data Laboratory Results . Diagnostic Findings X-rays of the left knee show advanced osteoarthritis with joint space narrowing, osteophyte formation, and asvp-sm-mwmi articulation.. PG Care Time/CCT Total # of Minutes Spent Total Time Spent with Patient: Total time spent is greater than 50% in coordination of care (as documented) at patient's floor/unit and/or counseling patient: Coding Level of Care Code None Diagnoses Osteoarthritis of left knee M17.12
[~2022-09-10 08:35] MED LIST changes: -BUPIVACAINE 0.5 % 5 MG/1 ML PF 10ML VIAL ONE
[2022-09-10] MEDS ORDERED: LIDOCAINE 2% 2 ML VIAL/AMP(20MG/ML) INFIL ONE (10:14)
[2022-09-10] MEDS ORDERED: PROPOFOL IV EMULSION 10 MG/ML 20 ML VIAL IV ONE (10:14)
[2022-09-10] MEDS ORDERED: MIDAZOLAM HCL 1 MG/ML 2ML VIAL ONE (10:14)
--- NOTE | 2022-09-10 10:31 | History & Physical Bridge Note ---
Date of Service September 10, 2022 History & Physical Bridge Note I have examined the patient, reviewed the History & Physical and in the interval since the performance of the History & Physical I have noted the following changes of clinical significance: no changes noted
[2022-09-10] MEDS ORDERED: ORTHO JOINT ANESTHETIC ONE (10:57)
[2022-09-10] MEDS ORDERED: HYDROmorphone INJ 1 MG/ML SYRINGE IV PRN (10:58)
[2022-09-10] MEDS ORDERED: ePHEDrine sulfate 50 MG/ML AMP IV PRN (10:58)
[2022-09-10] MEDS ORDERED: ONDANSETRON INJ 2 MG/ML 2 ML VIAL IV PRN ×2 (10:58→14:37)
[2022-09-10] MEDS ORDERED: ATROPINE SULFATE 0.1 MG/ML 10ML SYR IV PRN (10:58)
--- NOTE | 2022-09-10 12:44 | Operative Report ---
PG Post Operative Report Pre & Post Diagnosis Operation Date: 09/10/22 11:00 Pre-Op Diagnosis: Left Knee Osteoarthritis Post-Op Diagnosis: Left Knee Osteoarthritis I identified the patient and participated in the time-out.: Yes Procedure Operation Date: 09/10/22 11:00 Actual Procedures p Left Total Knee Arthroplasty(Left) - Kenneth Domingo DO Surgeon Kenneth Domingo DO Booth Operator Kenneth Collins PA-C Estimated Blood Loss 30 Findings Consistent with Post-Op Diagnosis Specimens Left femoral tibial bone Description of Procedure Implants used: I used a [employer]ia Persona total knee arthroplasty system with a size 9 narrow PS femur, E tibia, 31 oval patella, and a size 14 CPS polyethylene bearing. All components were cemented in place with Biomet cement. Cindi arrived [facility] for the above procedure. She was seen in the preoperative holding area and the operative extremity was identified and signed. She was given a preoperative antibiotic, TXA, a spinal anesthetic and an adductor nerve block. She was taken back to the operating room and laid on the table in supine position. She was given basic sedation. The operative knee was then prepped and draped in sterile fashion. A timeout was done, and the patient and the operative extremity was properly identified. A midline incision was made directly over the patella. Dissection was taken down to the extensor mechanism. A midvastus arthrotomy was used. The medial retinaculum was released and the fat pad was mostly excised. The knee was flexed and the ACL, PCL, and meniscus were removed. A drill was sent down the center of the femoral canal followed by an intramedullary jaswinder. Off that jaswinder a distal femoral cutting block was placed. 9 mm was resected off the distal femur at 5 of valgus. A posterior referencing AP sizing guide was then placed on the distal femur. The femur measured to be a size 9. 2 drill holes were placed in 3 of external rotation. A 4-in-1 cutting block was then impacted into place. Anterior, posterior, and chamfer cuts were then made. The proximal tibia was then exposed. An external tibial alignment guide was placed. A tibial cut guide was then anchored in place and the proximal tibia was then resected. The posterior aspect of the knee was then opened up and any additional meniscus fragments and osteophytes were removed. The tibia measured to be a size E. The tibial plate was then placed in the appropriate rotation and the tibia was drilled and punched. Trial components were then placed. I used a size 14 CPS polyethylene insert. The knee was brought through a full range of motion and felt to be stable. The peg holes for the femoral component were then drilled. The patella was then everted and 9 mm was resected off the posterior aspect of the patella. The patella measured to be a size 31 oval. 3 peg holes were then drilled. A trial patella was placed. The knee was once again brought through a full range of motion and felt to be stable. Trial components were then removed. The surrounding soft tissues were injected with 100 cc of an orthopedic pain control cocktail. All components were then cemented into place with Biomet cement. The final polyethylene insert was then snapped into place. Once cement was dry the tourniquet was deflated. Hemostasis was obtained. A dilute betadyne lavage was then done for 3 minutes. The joint was then irrigated with normal saline solution. The midvastus arthrotomy was then closed with #1 Vicryl suture. The skin was closed with 2-0 Vicryl, 3-0V lock suture, and ellen. A soft compressive dressing was placed. She was then transferred to a hospital bed and taken to the postanesthesia care unit in stable condition. She tolerated the procedure well. Kenneth Cuadra PA-C, was present for the entire procedure. He was critical for patient positioning, prepping, draping, retraction exposure, wound closure and application of sterile dressing. I attest to the content of the Intraoperative Record and any orders documented therein. Any exceptions are noted below.
--- NOTE | 2022-09-10 13:38 | XRay Report ---
XR knee LT 1 or 2V routine CLINICAL HISTORY: Postoperative evaluation. COMPARISON: Left knee radiographs June 26, 2022. FINDINGS: Alignment of the total left knee arthroplasty is anatomic. There is no periprosthetic frac ture. No unexpected radiopaque foreign bodies. There are skin ellen. IMPRESSION: Expected findings following total left knee arthroplasty. ACT 112: Negative or not required by law. Electronically signed by: Rajinder Bautista M.D. 09/10/2022 1:37 PM
--- NOTE | 2022-09-10 14:00 | Anesthesiology Progress Note ---
Date of Service September 10, 2022 Anesthesia Post Procedure Vital Signs Vital Signs: Temp Pulse Resp BP Pulse Ox O2 Del Method O2 Flow Rate 09/10/22 13:55 54 L 14 105/64 97 Nasal Cannula 2 09/10/22 13:45 36.6 C 54 L 14 101/66 98 Nasal Cannula 2 09/10/22 13:35 54 L 14 101/66 98 Nasal Cannula 2 09/10/22 13:25 57 L 13 98/62 L 98 Nasal Cannula 2 09/10/22 13:15 57 L 22 98/65 L 96 Nasal Cannula 2 09/10/22 13:09 36.1 C L 58 L 16 93/59 L 95 Room Air Transfer of Care Handoff Completed per policy Notes Mental Status: alert / awake / arousable Patient Amnestic to Procedure: Yes Nausea / Vomiting: adequately controlled Pain: adequately controlled Airway Patency, RR, SpO2: stable & adequate BP & HR: stable & adequate Hydration State: stable & adequate Neuraxial Anesthesia: was administered and sensory block is resolving Anesthetic Complications: no major complications apparent
[2022-09-10] MEDS ORDERED: bisacodyL 10 MG SUPP PR PRN (14:37)
[2022-09-10] MEDS ORDERED: MAGNESIUM HYDROXIDE SUSP 30 ML UDC PO PRN (14:37)
[2022-09-10] MEDS ORDERED: NALOXONE HCL 0.4 MG/1 ML VIAL/CARP IV PRN (14:37)
[2022-09-10] MEDS ORDERED: oxyCODONE HCL IR 5 MG TAB (IMMEDIATE RELEASE) PO PRN (14:37)
[2022-09-10] MEDS ORDERED: METOCLOPRAMIDE HCL INJ 5 MG/ML 2 ML VIAL IV PRN (14:37)
[2022-09-10] MEDS ORDERED: HYDROmorphone INJ 0.5 MG/0.5 ML SYR IV PRN (14:37)
[2022-09-10] MEDS: KETOROLAC 30 MG/ML VIAL IV SCH ×2 (15:05→20:29)
[2022-09-10] MEDS: SODIUM CHLORIDE 0.9% 1000ML 1,000 ML IV SCH (15:05)
[2022-09-10] MEDS: ACETAMINOPHEN 500 MG TAB PO SCH (16:37)
[2022-09-10] MEDS: ceFAZolin 2000MG 2,000 MG/15 ML SYR IV SCH (18:30)
[2022-09-10] MEDS: METOPROLOL TARTRATE 25 MG TAB PO SCH (20:27)
[2022-09-10] MEDS: DOCUSATE SODIUM 100 MG CAP PO SCH (20:28)
[2022-09-10] MEDS: FLECAINIDE ACETATE 100 MG TABLET PO SCH (20:29)
[2022-09-10] MEDS: methIMAzole 5 MG TABLET PO SCH (20:31)
[2022-09-10] MEDS: ASPIRIN 81 MG ECTAB PO SCH (20:31)
[2022-09-10] MEDS ORDERED: SENNA 8.6 MG TAB PO SCH (21:00)
[2022-09-11] MEDS: ACETAMINOPHEN 500 MG TAB PO SCH ×2 (01:10→07:42)
[2022-09-11] MEDS: SODIUM CHLORIDE 0.9% 1000ML 1,000 ML IV SCH (02:06)
[2022-09-11] MEDS: KETOROLAC 30 MG/ML VIAL IV SCH ×2 (04:19→07:43)
[2022-09-11] MEDS: ceFAZolin 2000MG 2,000 MG/15 ML SYR IV SCH (04:19)
--- NOTE | 2022-09-11 06:51 | Orthopedic Progress Note ---
Date of Service September 11, 2022 Assessment & Plan (1) Status post left knee replacement: Overall she is doing very well. She is not having much pain in the left knee. She will be seen by physical therapy today for ambulation and range of motion exercises. She is on aspirin for DVT prophylaxis. She can be discharged home later today. She will follow-up with orthopedics in 2 weeks. Amy Puente was seen and examined at bedside this morning. Overall she is doing very well. She is not having much pain in the left knee. She has been up and ambulating to the bathroom. She has no complaints.. Review of Systems All systems reviewed & are unremarkable except as noted in HPI & below. Physical Exam On physical examination of the left knee, the dressing is clean and dry. Her leg is out full extension. She has active dorsiflexion plantarflexion of her left ankle.. Results & Data Results & Data Laboratory Results . Diagnostic Findings Postoperative x-rays of the left knee show the prosthesis to be in anatomic alignment without any evidence of fracture, desiccation, or loosening.. PG Care Time/CCT Total # of Minutes Spent Total Time Spent with Patient: Total time spent is greater than 50% in coordination of care (as documented) at patient's floor/unit and/or counseling patient: Coding Level of Care Code 84403 Post Operative Follow-Up Diagnoses Status post left knee replacement Z96.652
--- NOTE | 2022-09-11 06:52 | Discharge Summary ---
Date of Service September 11, 2022 Admission HPI (Per Admitting) And is a pleasant 66-year-old female who has been dealing with chronic increasing left knee pain. X-rays and clinical examination have been diagnostic for advanced osteoarthritis of the left knee. I did a right knee replacement on her in April 2022 and she is done well with that. She has elected proceed with a left total knee arthroplasty.. Admission Exam (Per Admitting) On physical examination of the left knee, she has slight varus deformity. She has tenderness palpation of the distal medial and lateral femoral condyles. She has pain over the joint line.. Principal Diagnosis Same as "Discharge Diagnosis" noted below under Discharge Instructions. Discharge Exam On physical examination of the left knee, the dressing is clean and dry. Her leg is out full extension. She has active dorsiflexion plantarflexion of her left ankle.. Discharge Data Procedures Performed Operation Date: 09/10/22 11:00 Actual Procedures p Left Total Knee Arthroplasty(Left) - Kenneth Domingo DO Ordered Studies 09/10/22 05:00 US - OR guided needle placemen Routine Hospital Course (1) Status post left knee replacement: On September 10, 2022 Cindi arrived at [facility] and underwent a left knee replacement without complication. She had a spinal anesthetic. Postoperatively she was started on aspirin for DVT prophylaxis and transferred to the general orthopedic floors. Her hospital course was uneventful. On postop day #1, her vital signs were stable and her pain was well controlled. She was able to participate well with physical therapy doing ambulation and range of motion exercises. She was then discharged home. She will follow-up with orthopedics in 2 weeks. PG Care Time/CCT Total # of Minutes Spent Total Time Spent with Patient: Total time spent is greater than 50% in coordination of care (as documented) at patient's floor/unit and/or counseling patient: Discharge Plan Discharge Items Patient Disposition: Home - Home Health Services Reason For Visit: Left Knee Degenerative Joint Disease Discharge Diagnosis: Left knee replacement Activity: Per Instructions section Non-emergency contact: Surgeon Call non-emergency contact if: your wound has increased redness and your wound has increased drainage Follow-up/Referrals: Abad Shahid MD [Primary Care Provider] - Diet: Regular Addtl Attending Provider Instructions: Activity and Therapy Recommendations: * If you are using [facility] then therapy will be provided at your home until they feel you have accomplished all of your goals. * If you are using [facility] then Physical Therapy will be provided until they feel you are ready to start Outpatient Physical Therapy. * If you are not using home therapy then Outpatient Physical Therapy should start about 3-5 days from your day of surgery. Therapy will last about 6-10 weeks * It is important not to put a pillow under your knee when you are relaxing or sleeping. It is just as important to make sure you are getting your knee perfectly straight as it is to regain your knee bend. * You were shown a series of exercises in the hospital. Do these exercises three times each day including the exercises you were shown in physical therapy. * Get up and walk several times each day. For the first four weeks, try not to stand or walk for more than one hour at a time. If you do stand or walk for more than one hour, you will not hurt anything, but your leg will likely swell. * As you feel comfortable, you may change from the walker or crutches to a cane and then to independent walking. Medications: * Narcotic You will likely be sent home from the hospital with a prescription for the narcotic pain medication that worked best throughout your stay. * Aspirin Most patients will be required to take Aspirin 81mg twice a day for 6 weeks after surgery. This is obtained [id number] and a prescription is not necessary. * Other medications may be prescribed for specific circumstances. If you have any questions, please call the office at . * Resume previous home medications unless otherwise instructed TEDs/Elastic Stockings: The white elastic stockings help limit swelling and prevent blood clots from forming in your legs.~ The more you wear them, the more they work. Wear them for six weeks. Dressing Care: The dressing can be changed after physical therapy on postop day #1. Daily dry dressing changes for a few days, especially if the incision is still d raining some. If the incision is not draining then you may leave the ellen open to air. If there is a little bit of drainage or if the ellen are getting stuck on your clothing then cover the incision with a dry dressing. The ellen will be removed at your 2 week follow-up appointment. Showering: You may shower 5 days from the day of surgery as long as the incision is no longer draining. You may shower with the ellen exposed. Let soapy water run over the ellen and pat them dry. Do not scrub or soak the incision. Things To Watch For: * Drainage from the incision site that occurs more than one week after your surgery. * Increased redness at the incision site. * Fever above 102 degrees Fahrenheit. * Unusual chest pain or shortness of breath. * Call [facility] at with any of the above problems Follow-Up Visit: Follow-up with Dr. Domingo's PA (Kenneth Cuadra) 2-3 weeks after your day of surgery. He will remove your ellen and answer any questions. If you have any additional questions or concerns, Dr Domingo is usually in the office at the same time and will be available An appointment was probably scheduled when you signed-up for surgery in the office. If you have any questions call Office Instructions: More detailed instructions as well as Frequently Asked Questions were provided in a folder by our office when you signed-up for surgery. Please review these instructions when you get home. If you have any further questions or concerns, please feel free to call the office at [phone] Pending Studies at Discharge: No Stand-Alone Forms: My [facility] Medications and DC Order Prescriptions: New aspirin 81 mg Tablet,Delayed Release (Dr/Ec) 81 mg PO BID 42 Days Qty: 84 0RF oxycodone-acetaminophen 5-325 mg tablet 1 tab PO Q6H PRN (Reason: pain) Qty: 30 0RF Continued amlodipine [Norvasc] 5 mg tablet 10 mg PO QAM 90 Days Qty: 180 3RF flecainide 150 mg tablet 150 mg PO BID Qty: 180 1RF methimazole 5 mg tablet 5 mg PO BID Qty: 180 3RF metoprolol tartrate 25 mg tablet 25 mg PO BID Qty: 180 3RF rosuvastatin 5 mg tablet 5 mg PO QAM Qty: 90 3RF Admission Data Admit Date/Time: 09/10/22 13:11 Attending Provider: Kenneth Domingo Admit Provider: Kenneth Domingo Primary Care Provider: Abad Shahid
[2022-09-11] MEDS: ASPIRIN 81 MG ECTAB PO SCH (07:42)
[2022-09-11] MEDS: methIMAzole 5 MG TABLET PO SCH (07:43)
[2022-09-11] MEDS: FLECAINIDE ACETATE 100 MG TABLET PO SCH (07:44)
[2022-09-11] MEDS: METOPROLOL TARTRATE 25 MG TAB PO SCH (07:45)
[2022-09-11] MEDS: DOCUSATE SODIUM 100 MG CAP PO SCH (07:45)
[2022-09-11] MEDS ORDERED: dexAMETHasone 4 MG TAB PO SCH (08:00)
[2022-09-11] MEDS ORDERED: amLODIPine BESYLATE 5 MG TAB PO SCH (09:00)
[2022-09-11] MEDS ORDERED: MULTIVITAMIN TAB PO SCH (09:00)
[2022-09-11] MEDS ORDERED: ROSUVASTATIN CALCIUM 5 MG TAB PO SCH (09:00)
== END 2022-09-11 11:00 | disposition home or self-care (01) ==
LOC: 3E 08:35 → ASU 08:35